=== PATIENT | female | born 1950 | race Caucasian/White ===

== ENCOUNTER → 2018-03-23 | Outpatient (CLI) | payer OTHER ==
--- NOTE | 2018-03-23 10:10 | CARD ---
MR#: [id number] Date of Study: 03/23/2018 Ordering Physician: PRISCILA MOORE, Referring Physician: PRISCILA MOORE, Tech: Laura Cody MILTON APPROVED REPORT EXAM: Two-dimensional and M-mode echocardiogram with Doppler and color Doppler. Other Information Quality : AverageHR: 73bpm Rhythm : NSR INDICATION Murmur 2D DIMENSIONS RVDd2.5 (2.9-3.5cm)Left Atrium(2D)3.0 (1.6-4.0cm) IVSd1.1 (0.7-1.1cm)Aortic Root(2D)2.9 (2.0-3.7cm) LVDd4.7 (3.9-5.9cm)LVOT Diameter2.0 (1.8-2.4cm) PWd1.0 (0.7-1.1cm)LVDs3.2 (2.5-4.0cm) FS (%) 31.4 %SV59.4 ml LVEF(%)59.3 (>50%) M-Mode DIMENSIONS Left Atrium(MM)3.55 (2.5-4.0cm)Aortic Root3.23 (2.2-3.7cm) Aortic Valve AoV Peak Domenic.110.5cm/sAoV VTI26.0cm AO Peak GR.4.9mmHgLVOT Peak Domenic.72.9cm/s AO Mean GR.3mmHgAVA (VMAX)2.11cm2 DALLIN (VTI)2.20cm2 Mitral Valve MV E Jjjkemtu13.3cm/sMV DECEL NEZB663hf MV A Hmqxgzqf08.7cm/sE/A Ratio0.9 MV A Egcitsou122jb Pulmonary Valve PV Peak Ilnjbttv42.6cm/s Tricuspid Valve TR P. Qfbqnilt922xm/sRAP RRGOZORU5fqNr TR Peak Gr.94xkLjXPBL31gaCb Pulmonary Vein S1 Lpmtbawg37.9cm/sD2 Xokxdydi88.5cm/s PVa dvscipqg554vmzq LEFT VENTRICLE The left ventricle is normal size. There is borderline concentric left ventricular hypertrophy. The l eft ventricular systolic function is normal and the ejection fraction is within normal range. The Eje ction Fraction is 55-60%. There is normal LV segmental wall motion. Transmitral Doppler flow pattern is Grade II-pseudonormal filling dynamics. RIGHT VENTRICLE The right ventricle is normal size. There is normal right ventricular wall thickness. The right ventr icular systolic function is normal. ATRIA The left atrium size is normal. The right atrium size is normal. The interatrial septum is intact wit h no evidence for an atrial septal defect or patent foramen ovale as noted on 2-D or Doppler imaging. AORTIC VALVE The aortic valve is trileaflet. The aortic valve is normal in structure and function. Doppler and Col or Flow revealed no significant aortic regurgitation. There is no significant aortic valvular stenosi s. MITRAL VALVE Mitral annular calcification is mild. There is no evidence of mitral valve prolapse. There is no mitr al valve stenosis. Doppler and Color-flow revealed trace mitral regurgitation. TRICUSPID VALVE The tricuspid valve is normal in structure and function. Doppler and Color Flow revealed trace tricus pid regurgitation. The PA pressure was estimated at 33 mmHg. There is no tricuspid valve prolapse or vegetation. There is no tricuspid valve stenosis. PULMONIC VALVE The pulmonary valve is normal in structure and function. Doppler and Color Flow revealed trace pulmon ic valvular regurgitation. There is no pulmonic valvular stenosis. GREAT VESSELS The aortic root is normal in size. The ascending aorta is normal in size. The IVC is normal in size a nd collapses >50% with inspiration. PERICARDIAL EFFUSION There is no evidence of significant pericardial effusion. Critical Notification Critical Value: No <Conclusion> The left ventricle is normal size. The left ventricular systolic function is normal and the ejection fraction is within normal range. The Ejection Fraction is 55-60%. There is borderline concentric left ventricular hypertrophy. There is no significant aortic valvular stenosis. Doppler and Color Flow revealed no significant aortic regurgitation. Doppler and Color-flow revealed trace mitral regurgitation. Doppler and Color Flow revealed trace tricuspid regurgitation. The PA pressure was estimated at 33 mmHg. Signed by : Priscila Moore MD Electronically Approved : 03/23/2018 10:09:34
--- NOTE | 2018-03-23 12:07 | RAD ---
MR#: [id number] Date of Study: 03/23/2018 Ordering Physician: PRISCILA DE SANTIAGO, Referring Physician: ERIK MOREJON Tech: RT Nupur (R) (N) APPROVED REPORT Test Type: Exercise Stress Nurse/Tech: Ita Davis R.N. Test Indications: dyspnea on exertion, fatigue Cardiac History: Family history, Hypertension Medications: See Electronic Medical Record Medical History: See Electronic Medical Record Resting ECG: NSR Resting Heart Rate: 83 bpm Resting Blood Pressure: 171/75mmHg Pretest Chest Pain: No chest pain Nurse/Tech Notes S1S2, lungs sound clear Consent: The procedure was explained to the patient in lay terms. Informed consent was witnessed. Guzman eout was entered into [employer]. History and Stress Test performed by Ita Davis R.N. Stress Symptoms Dyspnea POST EXERCISE Reason for Termination: Reached target heart rate Target HR: 128 Max HR: 149 bpm 99% of Maximum Predicted HR: 151 bpm Exercise duration: 6 min min:sec, 2 Stage Max Blood Pressure: 197/76mmHg Blood Pressure response to exercise: Normal blood pressure response during stress. Chest Pain: No. Arrhythmia: Yes. rare PVC after walking INTERPRETATION Stress EKG Conclusion: The resting EKG shows a sinus rhythm with mild nonspecific ST segment changes. The stress EKG has slight flat ST depression in the lateral leads that is not diagnostic of ischemia. No EKG evidence of stress-induced ischemia. Imaging Protocol IMAGE PROTOCOL: Rest Tc-99m/stress Tc-99m 1 day Rest: Stress: Viability: Radiopharm.Tc99m BmoilubmqYt84u Sestamibi Dose10.6mCi 33.9mCi Duration 13min. 13min. Img Date 03/23/2018 03/23/2018 Inj-Img Zpnc76ahm. 60min. Rest Admin Site:IV - Left WristAdministrator:RT Nupur (Chris)(N) Stress Admin Site: IV - Left WristAdministrator: RT Nupur (Chris)(N) STRESS DATA End Diast. Vol.72.0mlLVEDV index BSA38.0ml End Syst. Vol.18.0mlLVESV index BSA9.0ml Myocardial Hnbp798.0gEject. Jlwuyawg29.0% Stress Scores Regional WT1.00Summed WT3.00 Regional WM0.00Summed WM0.00 LV Perfusion The stress scans show no significant defects. The rest scans show no significant defects. Nuclear imaging shows no reversible ischemia or infarct. Wall Motion Left ventricular systolic function is normal with an ejection fraction of greater than 70%. LV Perf. Quant 17 Seg. SSS0.00 17 Seg. SRS4.00 17 Seg. SDS0.00 Stress Defect Extent (% LAD)0.00Rest Defect Extent (% LAD)16.90Rev. Defect Extent (% LAD)0.00 Stress Defect Extent (% LCX) 0.00Rest Defect Extent (% LCX)0.00Rev. Defect Extent (% LCX)0.00 Stress Defect Extent (% RCA)0.00Rest Defect Extent (% RCA)0.00Rev. Defect Extent (% RCA)0.00 Stress Defect Extent (% ROCAEL)0.00Rest Defect Extent (% ROCAEL)7.80Rev. Defect Extent (% ROCAEL)0.00 Conclusion 1. Good exercise tolerance. 2. No reported chest pain with exertion. 3. No EKG evidence of stressed induced ischemia. 4. Nuclear imaging shows no reversible ischemia or infarct. 5. Normal left ventricular systolic function with an ejection fraction of greater than 70%. 6. Low risk treadmill nuclear stress test. Signed by : Priscila De Santiago MD Electronically Approved : 03/23/2018 12:06:44
== END | disposition home or self-care (01) ==
LOC: ECHO 07:41
PROVIDERS: ATTEND Internal Medicine Cardiovascular Disease
DX: R01.1 Cardiac murmur, unspecified (principal); R06.09 Other forms of dyspnea; Z82.49 Family history of ischemic heart disease and other diseases of the circulatory system
CPT/HCPCS: 78452; 93017; 93306; 96374; 96376; A9500

== ENCOUNTER → 2019-03-06 | Outpatient (CLI) | payer OTHER ==
--- NOTE | 2019-03-06 16:55 | KCIC ---
MRI Lumbar Spine without contrast History: Previous laminectomy, lumbar radiculopathy, low back pain Technique: Multiplanar, multi sequential noncontrast MR imaging was performed of the lumbar spine. Comparison: None Findings: Lumbar vertebral body stature is maintained. There is grade 1 anterior spondylolisthesis at L4-5 and the order of 4 mm. There is advanced L4-5 degenerative disc disease, ebor-ei-rficcbbu L3-4 degenerative disc disease. There is mild disc desiccation at other levels of the lumbar spine. There is mild edema of the posterior superior corner of L4 likely reactive/degenerative in etiology. There are annular tears such as posteriorly and anteriorly at L3-4, posteriorly at L4-5, and anteriorly at L2-3. Conus terminates near L1. 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 L1-L2: Spinal canal and neural foramina are adequate. L2-L3: There is small hemangioma of the left L2 vertebral body. There is negligible disc osteophyte complex. There is minimal narrowing of the far lateral recesses greater on the left. Neural foramina are adequate. There is mild facet degenerative change. L3-L4: There is minimal bulge. There is mild buckling of the ligamentum flavum and facet degenerative change. There is minimal narrowing of the far lateral recesses bilaterally. Neural foramina are adequate. L4-L5: There is moderate facet degenerative change. There is mild buckling of the ligamentum flavum on the left. There is partial uncovering of the posterior aspect of the disc due to spondylolisthesis with superimposed disc osteophyte complex and bulge. There is moderate narrowing of the far left lateral recess primarily from posteriorly, minimal narrowing of the far right lateral recess, minimal narrowing of the central canal. There is moderate narrowing of the left neural foramen, disc osteophyte complex/bulge near the undersurface exiting left L4 nerve root without displacement. There is also moderate narrowing of the right neural foramen greater distally. L5-S1: There is negligible bulge. Spinal canal is adequate. There is mild facet hypertrophic change and buckling of the ligament flavum. There is mild narrowing of the left neural foramen, right neural foramen adequate. Impression: 1. There is moderate narrowing of the far left lateral recess at L4-5, minimal narrowing of the far lateral recesses at L4-5 and bilaterally at L3-4 and L2-3 as described. 2. There is more advanced degenerative disc disease at L4-5, to lesser degree L3-4. 3. There is grade 1 anterior spondylolisthesis at L4-5 at which there is facet degenerative change. 4. There is moderate narrowing of the neural foramina bilaterally at L4-5. Electronically signed by: Maksim Beckett MD (03/06/2019 4:52 PM) [facility]
== END | disposition home or self-care (01) ==
LOC: KCIC MRI 15:02
PROVIDERS: ATTEND Family Medicine
DX: M43.16 Spondylolisthesis, lumbar region (principal); M51.36 Other intervertebral disc degeneration, lumbar region; M48.07 Spinal stenosis, lumbosacral region; M25.78 Osteophyte, vertebrae; M47.816 Spondylosis without myelopathy or radiculopathy, lumbar region; Z90.89 Acquired absence of other organs
CPT/HCPCS: 72148

== ENCOUNTER → 2019-03-28 | Outpatient (CLI) | payer MEDICARE, OTHER ==
--- NOTE | 2019-03-28 17:06 | KCIC ---
EXAM: Left hip, 2 views; lumbar spine, flexion and extension. HISTORY: Pain. COMPARISON: None. FINDINGS: Left hip: Frontal and frog-leg views of the left hip are obtained. There is no fracture, dislocation or subacute fixation. There is mild marginal femoral head spurring. Lumbar spine: Lateral neutral, flexion and extension views of the lumbar spine are obtained. There is grade 1 anterolisthesis of L4 on L5 which minimally increases in flexion compared to extension. This decreases with supine positioning. No additional listhesis is seen. There is endplate remodeling with disc space narrowing and only at this level. There is facet arthropathy at the mid and lower lumbar levels. IMPRESSION: 1. Mild left hip osteoarthritis. 2. Grade 1 anterolisthesis of L4 on L5 which slightly changes between flexion and extension and with supine positioning. There is degenerative change primarily at this level. Electronically signed by: Radha Yates MD (03/28/2019 5:03 PM) [id number]
== END | disposition home or self-care (01) ==
LOC: KCIC 15:55
PROVIDERS: ATTEND Neurological Surgery
DX: M43.16 Spondylolisthesis, lumbar region (principal); M46.06 Spinal enthesopathy, lumbar region; M48.061 Spinal stenosis, lumbar region without neurogenic claudication; M16.12 Unilateral primary osteoarthritis, left hip
CPT/HCPCS: 72100; 73502

== ENCOUNTER → 2019-04-10 | Outpatient (CLI) | payer MEDICARE ==
[~2019-04-10] MED LIST: IOHEXOL 180 MG/ML 10 ML VIAL. IT ONE; LIDOCAINE 1% Multi-Dose 20 ML VIAL. ID ONE
--- NOTE | 2019-04-10 14:35 | KCIC ---
Lumbar Myelogram History: Low back pain into the left leg for 3 months getting worse Technique: Patient was informed of the risks of the procedure to include pain, infection, bleeding, seizures, nerve root injury, and allergic reaction to the contrast. All questions were answered. Patient signed a written consent form for a lumbar myelogram. The patient was placed in a prone oblique position on the fluoroscopy table. External site of the lower back was prepped and draped in the usual sterile fashion. Betadine was utilized for cleansing solution. 1% lidocaine was utilized for local anesthesia at the anticipated site of puncture right L2-3 interlaminar space. A 19-gauge guiding needle was advanced into the soft tissues. Through the guiding needle, a 25 gauge Chito needle was advanced until there was return of cerebral spinal fluid. Approximately 15 cc of Omnipaque 180 were then injected during fluoroscopic visualization. The needles were removed. Fluoroscopic spot images including standing images were acquired of the lumbar spine. The patient was then transferred to the CT department for CT examination of the lumbar spine. There were no immediate complications. Fluoroscopy time: 46 seconds, 14 images Findings: There is no evidence of myelographic block. There is grade 1 anterior spondylolisthesis at L4-5 slightly accentuated with flexion. There is advanced L4-5 degenerative disc disease. There are anterior extradural defects at L4-5 and to a lesser degree at L3-4 and L2-3. There is very minimal posterior subluxation L2 relative to L3 fairly similar with flexion and extension. There is ddvp-vb-bsrozufw L3-4 degenerative disc disease. There is mild lumbar dextroscoliosis. There is mild left lateral subluxation L4 relative to L5 and mild right lateral subluxation of L3 relative to L4. There is atherosclerotic calcification of the abdominal aorta. Impression: 1. There is abnormal alignment as stated most notable grade 1 anterior spondylolisthesis at L4-5 slightly accentuated with flexion. Minimal posterior subluxation L2 relative to L3 is similar with flexion and extension. There is mild abnormal lateral alignment. 2. There is mild lumbar dextroscoliosis. 3. There is advanced L4-5 degenerative disc disease, to a lesser degree at L3-4. Electronically signed by: Maksim Beckett MD (04/10/2019 2:32 PM) [facility]
--- NOTE | 2019-04-10 15:30 | KCIC ---
CT lumbar spine exam History: Low back pain into the left leg for 3 months getting worse Technique: CT imaging was performed of the lumbar spine after injection for lumbar myelogram. Multiplanar reconstruction images are submitted. Exposure: One or more of the following individualized dose reduction techniques were utilized for this examination: 1. Automated exposure control 2. Adjustment of the mA and/or kV according to patient size 3. Use of iterative reconstruction technique. Comparison: March 06, 2019 Findings: Lumbar vertebral body stature is maintained. There is again grade 1 anterior spondylolisthesis at L4-5 about 6 mm. There is very minimal posterior subluxation L2 relative to L3. There is mild left lateral subluxation L4 relative to L5 and very mild right lateral subluxation L3 relative to L4. There is mild lumbar dextroscoliosis centered near L3. There is advanced L4-5 degenerative disc disease with associated vacuum phenomenon, ueii-ii-jfbxadfg degenerative disc disease at L3-4. Conus terminates at the mid aspect of L1. T12-L1: Neural foramina and spinal canal are adequate. L1-L2: There is mild facet degenerative change. Spinal canal and neural foramina are adequate. L2-L3: There is minimal buckling of the ligamentum flavum and kjkf-ip-nqdypzco facet degenerative change. Neural foramina are adequate. There is minimal bulge indenting the ventral thecal sac in the far lateral recesses bilaterally without significant spinal stenosis. L3-L4: There is minimal bulge. There is mild buckling of the ligamentum flavum and moderate facet hypertrophic change. There is very mild narrowing of the far right lateral recess from posteriorly. Neural foramina are adequate. L4-L5: There is moderate to severe facet degenerative change. There is mild buckling of the ligamentum flavum flavum on the left. There has been right laminotomy. There is moderate narrowing of the far left lateral recess from posteriorly below the intervertebral disc space level due to facet and ligamentum flavum, right lateral recess not significantly narrowed. There is partial uncovering of the posterior aspect of the disc due to spondylolisthesis, superimposed disc osteophyte complex and bulge. There is moderate narrowing of the right neural foramen with contact of the undersurface of exiting right L4 nerve by partially calcified bulge. There is gopo-ei-ealnjkpy narrowing of the inferior left neural foramen with bulge in the undersurface exiting left L4 nerve root without displacement. L5-S1: There is fairly severe facet degenerative change and mild buckling of the ligamentum flavum. Spinal canal is adequate. Right neural foramen is overall adequate. There is suspected small extrusion extending above the intervertebral disc space in the inferior left neural foramen such as seen sagittal image 12 series 603 about 3 mm CC by 3 to 4 mm AP with contact of the undersurface of the exiting left L5 nerve root in the neural foramen, moderate narrowing of the inferior left neural foramen. Impression: 1. There is moderate left lateral recess stenosis below the L4-5 intervertebral disc space by facet degenerative change and ligamentum flavum. There is suspected small extrusion in the inferior left L5-S1 neural foramen with contact of the exiting left L5 nerve root, overall moderate narrowing. There is also moderate right and foua-eh-fakisxyz left L4-5 neural foramina compromise as described with contact of the exiting L4 nerve roots. There is multilevel lumbar facet degenerative change, grade 1 anterior spondylolisthesis at L4-5 and minimal posterior subluxation L2 relative to L3. There is advanced L4-5 degenerative disc disease, to a lesser degree at L3-4. Electronically signed by: Maksim Beckett MD (04/10/2019 3:26 PM) [id number]
== END | disposition home or self-care (01) ==
LOC: KCIC 12:40
PROVIDERS: ATTEND Neurological Surgery
DX: M51.16 Intervertebral disc disorders with radiculopathy, lumbar region (principal); M47.26 Other spondylosis with radiculopathy, lumbar region; M43.16 Spondylolisthesis, lumbar region; M47.818 Spondylosis without myelopathy or radiculopathy, sacral and sacrococcygeal region; M48.07 Spinal stenosis, lumbosacral region; I70.0 Atherosclerosis of aorta; I10 Essential (primary) hypertension; Z88.5 Allergy status to narcotic agent
CPT/HCPCS: 72132; 72265; Q9965

== ENCOUNTER → 2019-05-22 | Outpatient (CLI) | payer MEDICARE ==
[~2019-05-22] MED LIST changes: +CALC-71 PO; +CHOL100099 PO; -IOHEXOL 180 MG/ML 10 ML VIAL. IT ONE; -LIDOCAINE 1% Multi-Dose 20 ML VIAL. ID ONE; +LISI10TA2 PO; +MAGN400T5 PO; +METO-239 PO; +ORPH100T PO; +OXYC5CAP PO; +POTA8CAP19 PO; +TRAM50TA PO; +ZINC50CA PO
--- NOTE | 2019-05-22 16:12 | EKG ---
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
[2019-05-22 16:28] LABS: BASO % 1 % (0-3); EOS # 0.2 x10^3/uL (0.0-0.7); EOS % 2 % (0-3); LYMPH # 1.7 x10^3/uL (1.0-4.8); LYMPH % 26 % (24-48); MEAN CORPUSCULAR HEMOGLOBIN 28 pg (25-35); MEAN CORPUSCULAR HGB CONC 33 g/dL (31-37); MEAN CORPUSCULAR VOLUME 83 fL (79-100); MONO # 0.7 x10^3/uL (0.0-1.1); MONO % 11 % (0-9); NEUT % 60 % (31-73); PLATELET COUNT 270 x10^3/uL (140-400); RED BLOOD COUNT 5.09 x10^6/uL (3.50-5.40); RED CELL DISTRIBUTION WIDTH 13.9 % (11.5-14.5); WHITE BLOOD COUNT 6.6 x10^3/uL (4.0-11.0)
[2019-05-22 16:44] LABS: PROTHROMBIN TIME PATIENT 13.7 SEC (11.7-14.0)
[2019-05-22 16:55] LABS: ALBUMIN 3.5 g/dL (3.4-5.0); ALBUMIN/GLOBULIN RATIO 0.8 (1.0-1.7); CALCIUM 9.9 mg/dL (8.5-10.1); CREATININE 0.9 mg/dL (0.6-1.0); GFR 61.9; TOTAL BILIRUBIN 0.3 mg/dL (0.2-1.0); TOTAL PROTEIN 7.7 g/dL (6.4-8.2)
== END | disposition home or self-care (01) ==
LOC: SURGPAT 13:14
PROVIDERS: ATTEND Neurological Surgery
DX: Z01.818 Encounter for other preprocedural examination (principal); I10 Essential (primary) hypertension; R94.31 Abnormal electrocardiogram [ECG] [EKG]
CPT/HCPCS: 36415; 80053; 82306; 85025; 85610; 85730; 87641; 93005

== ENCOUNTER 2019-05-28 09:19 | Emergency (ER) | payer MEDICARE ==
[~2019-05-28] VITALS: Ht 170.2 cm; Wt 80.0 kg
[~2019-05-28 09:19] MED LIST changes: -ORPH100T PO; -OXYC5CAP PO
[2019-05-28 09:25] VITALS: BP 172/84
[2019-05-28] MEDS ORDERED: IV NORMAL SALINE 1000ML BAG 1,000 ML IV ONE (09:45)
[2019-05-28] MEDS ORDERED: KETOROLAC 15 MG/ML VIAL. IVP ONE (09:45)
[2019-05-28] MEDS ORDERED: ORPHENADRINE CITRATE 60 MG/2 ML VIAL. IV ONE (09:45)
--- NOTE | 2019-05-28 09:46 | PHYS DOC ---
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 Reports some upper thoracic discomfort. Denies chest pain or shortness of air. D enies headache. Denies room spinning sensation. Patient reports has been eating and drinking normally. Denies dysuria. Patient reports she was scheduled for a back fusion which was delayed because the anesthesiologist was concerned about her EKG. Patient reports she has an appointment with cardiology on . Patient reports she was recently started on Tramadol for her chronic back pain. Reports concern that the medication might be causing some of her symptoms. Review of Systems Review of Systems Constitutional: Denies fever or chills; reports generalized malaise Eyes: Denies redness or eye pain HENT: Denies nasal congestion or sore throat Respiratory: Denies cough or shortness of breath Cardiovascular: Denies chest pain or palpitations GI: Denies abdominal pain, nausea, or vomiting : Denies dysuria or hematuria Musculoskeletal: Reports chronic back pain; denies extremity pain Integument: Denies rash or skin lesions Neurologic: Denies headache, focal weakness or sensory changes; reports dizziness Complete systems were reviewed and found to be within normal limits, except as documented in this note. Current Medications Current Medications Current Medications Medications (Trade) Dose Ordered Sig/Avery Start Time Stop Time Status Last Admin Dose Admin Ketorolac Tromethamine (Toradol 15mg Vial) 10 mg 1X ONCE 05/28/19 09:45 05/28/19 09:46 DC 05/28/19 10:27 10 MG Magnesium Chloride (Mag Delay) 64 mg 1X ONCE 05/28/19 11:15 05/28/19 11:16 UNV Orphenadrine Citrate (Norflex) 60 mg 1X ONCE 05/28/19 09:45 05/28/19 09:46 DC 05/28/19 10:27 60 MG Sodium Chloride 1,000 ml @ 1,000 mls/hr 1X ONCE 05/28/19 09:45 05/28/19 10:44 DC 05/28/19 10:27 1,000 MLS/HR Allergies Allergies Allergies Coded Allergies Type Severity Reaction Last Updated Verified codeine Allergy Mild VOMIT, SWEAT 03/23/18 No Physical Exam Physical Exam Constitutional: Well developed, well nourished, no acute distress, non-toxic appearance HENT: Normocephalic, atraumatic, oropharynx moist Eyes: PERRL, EOMI, conjunctiva normal, no discharge, no nystagmus Neck: Normal range of motion, no midline tenderness, supple Cardiovascular: Heart rate normal, regular rhythm Lungs & Thorax: Bilateral breath sounds clear to auscultation, no wheezing Abdomen: Soft, no tenderness Skin: Warm, dry, no erythema, no rash Back: No midline tenderness, bilateral paraspinal lumar pain, no CVA tenderness Extremities: No tenderness, ROM intact, no edema Neurologic: Alert and oriented X 3, normal motor function, normal sensory function, no focal deficits noted Psychologic: Affect normal, judgment normal Current Patient Data Vital Signs Vital Signs Date Time Temp Pulse Resp B/P (MAP) Pulse Ox O2 Delivery O2 Flow Rate FiO2 05/28/19 09:25 98.6 110 20 172/84 (113) 96 Room Air 98.6 Lab Values Laboratory Tests Test 05/28/19 09:45 05/28/19 10:15 White Blood Count 6.1 x10^3/uL (4.0-11.0) Red Blood Count 4.95 x10^6/uL (3.50-5.40) Hemoglobin 13.6 g/dL (12.0-15.5) Hematocrit 41.1 % (36.0-47.0) Mean Corpuscular Volume 83 fL (79-100) Mean Corpuscular Hemoglobin 28 pg (25-35) Mean Corpuscular Hemoglobin Concent 33 g/dL (31-37) Red Cell Distribution Width 14.0 % (11.5-14.5) Platelet Count 239 x10^3/uL (140-400) Neutrophils (%) (Auto) 72 % (31-73) Lymphocytes (%) (Auto) 20 % (24-48) L Monocytes (%) (Auto) 6 % (0-9) Eosinophils (%) (Auto) 2 % (0-3) Basophils (%) (Auto) 1 % (0-3) Neutrophils # (Auto) 4.4 x10^3/uL (1.8-7.7) Lymphocytes # (Auto) 1.2 x10^3/uL (1.0-4.8) Monocytes # (Auto) 0.4 x10^3/uL (0.0-1.1) Eosinophils # (Auto) 0.1 x10^3/uL (0.0-0.7) Basophils # (Auto) 0.0 x10^3/uL (0.0-0.2) Prothrombin Time 13.9 SEC (11.7-14.0) Prothrombin Time INR 1.1 (0.8-1.1) Activated Partial Thromboplast Time 31 SEC (24-38) Sodium Level 142 mmol/L (136-145) Potassium Level 3.6 mmol/L (3.5-5.1) Chloride Level 102 mmol/L (98-107) Carbon Dioxide Level 25 mmol/L (21-32) Anion Gap 15 (6-14) H Blood Urea Nitrogen 13 mg/dL (7-20) Creatinine 1.1 mg/dL (0.6-1.0) H Estimated GFR (Cockcroft-Gault) 49.1 BUN/Creatinine Ratio 12 (6-20) Glucose Level 216 mg/dL (70-99) H Calcium Level 9.7 mg/dL (8.5-10.1) Magnesium Level 1.5 mg/dL (1.8-2.4) L Total Bilirubin 0.5 mg/dL (0.2-1.0) Aspartate Amino Transferase (AST) 29 U/L (15-37) Alanine Aminotransferase (ALT) 70 U/L (14-59) H Alkaline Phosphatase 77 U/L (46-116) Creatine Kinase 41 U/L (26-192) Creatine Kinase MB (Mass) ng/mL (0.0-3.6) Creatine Kinase MB Relative Index % (0-4) Troponin I Quantitative < 0.017 ng/mL (0.000-0.055) Total Protein 7.4 g/dL (6.4-8.2) Albumin 3.4 g/dL (3.4-5.0) Albumin/Globulin Ratio 0.9 (1.0-1.7) L Urine Collection Type Unknown Urine Color Yellow Urine Clarity Clear Urine pH 5.5 Urine Specific [place] 1.010 Urine Protein Negative mg/dL (NEG-TRACE) Urine Glucose (UA) Negative mg/dL (NEG) Urine Ketones (Stick) Negative mg/dL (NEG) Urine Blood Negative (NEG) Urine Nitrite Negative (NEG) Urine Bilirubin Negative (NEG) Urine Urobilinogen Dipstick 0.2 mg/dL (0.2 mg/dL) Urine Leukocyte Esterase Negative (NEG) Urine RBC 0 /HPF (0-2) Urine WBC 0 /HPF (0-4) Urine Squamous Epithelial Cells Few /LPF Urine Bacteria 0 /HPF (0-FEW) Laboratory Tests 05/28/19 09:45 Laboratory Tests 05/28/19 09:45 EKG EKG @1010 NSR at 90bpm, NO ST elevation, nonspecific t wave inversion I, aVL, and V5-V6 Radiology/Procedures Radiology/Procedures PROCEDURE: CT HEAD WO CONTRAST EXAM: Head CT without contrast. HISTORY: Dizziness. TECHNIQUE: Computed tomographic images of the head were obtained without contrast. *One or more of the following individualized dose reduction techniques were utilized for this examination: 1. Automated exposure control. 2. Adjustment of the mA and/or kV according to patient size. 3. Use of iterative reconstruction technique. COMPARISON: None. FINDINGS: There is no acute or subacute extra-axial or intraparenchymal hemorrhage. There is no mass effect or midline shift. There is no hydrocephalus. There are areas of decreased attenuation within the cerebral white matter, nonspecific and likely related to chronic small vessel disease. The visualized portions of the orbits, paranasal sinuses and mastoid air cells are unremarkable. No suspicious calvarial lesion is seen. IMPRESSION: No acute intracranial findings. Electronically signed by: Radha Yates MD (05/28/2019 10:03 AM) [facility] PROCEDURE: CHEST PA & LATERAL EXAM: Chest, 2 views. HISTORY: Dizziness. COMPARISON: 08/08/2012. FINDINGS: 2 views of the chest are obtained. There is no infiltrate, pleural effusion or pneumothorax. The heart is normal in size. There is suspected lingular atelectasis or scarring. IMPRESSION: No acute pulmonary finding. Electronically signed by: Radha Yates MD (05/28/2019 10:04 AM) [place] [id number] Course & Med Decision Making Course & Med Decision Making Pertinent Labs and Imaging studies reviewed. (See chart for details) Patient presents with dizziness this morning. Patient reports some upper thoracic discomfort. History of chronic back pain for which patient was scheduled for procedure on Wednesday but was rescheduled secondary to "EKG abnormalities ". Patient neurologically intact. NIH SS 0. EKG stable. Labs obtained and posted to chart. Hypomagnesemia addressed. CT head without acute process. Chest x-ray stable. IV fluid hydration given. Orthostatic vital signs stable. Patient reported chronic back pain. Patient reports concern that new pain medication- Tramadol might be causing some of her symptoms. Norflex and ketorlac given in department with some improvement of pain. Patient requests some continued treatment until she can follow with PCP or Neurosurgery. Hx of Oscar's disease. Will given Rx for Oxycodone 5mg x 8 tabs and Norflex prescription. Patient stable for discharge with outpatient follow-up with PCP. Discussed findings and plan with patient and family, who acknowledge understanding and agreement. Dragon Disclaimer Dragon Disclaimer This electronic medical record was generated, in whole or in part, using a voice recognition dictation system. Departure Departure Impression: Primary Impression: Dizziness Additional Impressions: Hypomagnesemia Chronic back pain Disposition: HOME, SELF-CARE Condition: STABLE Referrals: SANTOSH MCCLENDON MD (PCP) ZE ROWAN MD, PRASHANTH S MD Patient Instructions: Chronic Back Pain, Dizziness, [id number], Hypomagnesemia Scripts Oxycodone Hcl (OXYCODONE HCL) 5 Mg Capsule 0.5-1 TAB PO PRN Q6HRS PRN for PAIN, #8 TAB 0 Refills Prov: RUBENS ROLLINS DO 05/28/19 Orphenadrine Citrate (ORPHENADRINE CITRATE) 100 Mg Tablet.er 100 MG PO BID PRN for MUSCLE PAIN, #14 TAB Prov: RUBENS ROLLINS DO 05/28/19 NIHSS Stroke Scale NIH Stroke Scale: NIH Stroke Scale Response (Comments) Value Level of Consciousness: 0 Alert/Responsive 0 LOC Questions: 0 Answers both correctly 0 LOC Commands: 0 Performs both tasks 0 Best Gaze: 0 Normal 0 Visual: 0 No visual loss 0 Facial Palsy: 0 Normal, symmetrical 0 Motor - Left Arm 0 No drift 0 Motor - Right Arm 0 No drift 0 Motor - Left Leg 0 No drift 0 Motor: Right Leg 0 No drift 0 Limb Ataxia: 0 Absent 0 Sensory: 0 No loss 0 Best Language: 0 Normal 0 Dysathria: 0 Normal 0 Extinction and Inattention: 0 Normal 0 Total 0 Problem Qualifiers Additional Impressions: Chronic back pain Back pain location: low back pain Back pain laterality: unspecified Sciatica presence: unspecified whether sciatica present Qualified Codes: M 54.5 - Low back pain; G89.29 - Other chronic pain RUBENS ROLLINS DO May 28, 2019 09:46
--- NOTE | 2019-05-28 10:05 | RAD ---
EXAM: Head CT without contrast. HISTORY: Dizziness. TECHNIQUE: Computed tomographic images of the head were obtained without contrast. *One or more of the following individualized dose reduction techniques were utilized for this examination: 1. Automated exposure control. 2. Adjustment of the mA and/or kV according to patient size. 3. Use of iterative reconstruction technique. COMPARISON: None. FINDINGS: There is no acute or subacute extra-axial or intraparenchymal hemorrhage. There is no mass effect or midline shift. There is no hydrocephalus. There are areas of decreased attenuation within the cerebral white matter, nonspecific and likely related to chronic small vessel disease. The visualized portions of the orbits, paranasal sinuses and mastoid air cells are unremarkable. No suspicious calvarial lesion is seen. IMPRESSION: No acute intracranial findings. Electronically signed by: Radha Yates MD (05/28/2019 10:03 AM) [facility]
--- NOTE | 2019-05-28 10:07 | RAD ---
EXAM: Chest, 2 views. HISTORY: Dizziness. COMPARISON: 08/08/2012. FINDINGS: 2 views of the chest are obtained. There is no infiltrate, pleural effusion or pneumothorax. The heart is normal in size. There is suspected lingular atelectasis or scarring. IMPRESSION: No acute pulmonary finding. Electronically signed by: Radha Yates MD (05/28/2019 10:04 AM) [facility]
[2019-05-28 10:11] LABS: BASO % 1 % (0-3); EOS # 0.1 x10^3/uL (0.0-0.7); EOS % 2 % (0-3); HEMATOCRIT 41.1 % (36.0-47.0); HEMOGLOBIN 13.6 g/dL (12.0-15.5); LYMPH # 1.2 x10^3/uL (1.0-4.8); LYMPH % 20 % (24-48); MEAN CORPUSCULAR HEMOGLOBIN 28 pg (25-35); MEAN CORPUSCULAR HGB CONC 33 g/dL (31-37); MEAN CORPUSCULAR VOLUME 83 fL (79-100); MONO # 0.4 x10^3/uL (0.0-1.1); MONO % 6 % (0-9); NEUT # 4.4 x10^3/uL (1.8-7.7); NEUT % 72 % (31-73); PLATELET COUNT 239 x10^3/uL (140-400); RED BLOOD COUNT 4.95 x10^6/uL (3.50-5.40); WHITE BLOOD COUNT 6.1 x10^3/uL (4.0-11.0)
[2019-05-28 10:19] LABS: CALCIUM 9.7 mg/dL (8.5-10.1); CREATININE 1.1 mg/dL (0.6-1.0); GFR 49.1; POTASSIUM 3.6 mmol/L (3.5-5.1)
[2019-05-28 10:23] LABS: BILIRUBIN,URINE NEGATIVE (NEG); CLARITY,URINE CLEAR; COLOR,URINE YELLOW; NITRITE,URINE NEGATIVE (NEG); PH,URINE 5.5; PROTEIN,URINE NEGATIVE (NEG-TRACE); UROBILINOGEN,URINE 0.2 mg/dL (0.2 mg/dL)
[2019-05-28 10:24] LABS: ALBUMIN 3.4 g/dL (3.4-5.0); ALBUMIN/GLOBULIN RATIO 0.9 (1.0-1.7); MAGNESIUM 1.5 mg/dL (1.8-2.4); TOTAL BILIRUBIN 0.5 mg/dL (0.2-1.0); TOTAL PROTEIN 7.4 g/dL (6.4-8.2)
[2019-05-28 10:31] LABS: BACTERIA,URINE 0 /HPF (0-FEW); RBC,URINE 0 /HPF (0-2); SQUAMOUS EPITHELIAL CELL,UR FEW /LPF; WBC,URINE 0 /HPF (0-4)
[2019-05-28 10:34] LABS: CREATINE KINASE 41 U/L (26-192)
[2019-05-28 10:59] LABS: PROTHROMBIN TIME PATIENT 13.9 SEC (11.7-14.0)
[2019-05-28] MEDS ORDERED: MAGNESIUM CHLORIDE ER 64 MG TABLET.ER PO ONE (11:15)
[2019-05-28] MEDS ORDERED: OXYC5CAP PO (11:30)
[2019-05-28] MEDS ORDERED: ORPH100T PO (11:30)
--- NOTE | 2019-05-28 14:57 | EKG ---
[facility] [address] [place] [address] Test Date: 2019-05-28 Test Time: 10:10:58 Pat Name: NOEMY VALERO Department: Room: Gender: F Manager Travel: : 1950 Requested By: RUBENS ROLLINS Order Number: [id number] Reading MD: Measurements Intervals [place] Rate: 90 P: 12 MS: 204 QRS: -26 QRSD: 84 T: 124 QT: 332 QTc: 410 Interpretive Statements SINUS RHYTHM LEFTWARD AXIS LVH WITH REPOLARIZATION ABNORMALITY ABNORMAL ECG RI6.01 No previous ECG available for comparison
== END 2019-05-28 11:56 | disposition home or self-care (01) ==
LOC: ER 09:19
DX: R42 Dizziness and giddiness (principal); G89.29 Other chronic pain; M54.5 Low back pain; E83.42 Hypomagnesemia; I10 Essential (primary) hypertension; Z90.710 Acquired absence of both cervix and uterus; Z98.51 Tubal ligation status; E83.01 Wilson's disease; Z88.5 Allergy status to narcotic agent
CPT/HCPCS: 36415; 70450; 71046; 80053; 81001; 82553; 83735; 84484; 85025; 85610; 85730; 93005; 96361; 96374; 96375; 99285; J1885; J2360; J7030

== ENCOUNTER → 2019-06-08 | Outpatient (CLI) | payer MEDICARE ==
[2019-05-28 09:25] VITALS: BP 172/84
[~2019-06-08] MED LIST changes: +ORPH100T PO; +OXYC5CAP PO; +REGADENOSON 0.4 MG/5 ML DISP.SYRIN. IV ONE
--- NOTE | 2019-06-08 11:59 | RAD ---
MR#: [id number] Date of Study: 06/08/2019 Ordering Physician: PRISCILA MOORE, Referring Physician: ERIK MOREJON Tech: JAD Camejo APPROVED REPORT Test Type: Pharmacological Stress Nurse/Tech: Glenis Dominguez R.N. Test Indications: pre op clearance Cardiac History: htn Medications: see ehr Medical History: see ehr Resting ECG: sr Resting Heart Rate: 68 bpm Resting Blood Pressure: 134/62mmHg Pretest Chest Pain: No chest pain Nurse/Tech Notes lungs cta, heart tones regular Consent: The procedure was explained to the patient in lay terms. Informed consent was witnessed. Guzman eout was entered into [employer]. History and Stress Test performed by DENNIS Fritz, ARRT (R) (N) Pharm. Details Pharmacologic stress testing was performed using 0.4mg per 5ml of regadenoson given intravenously ove r 7-10 seconds. Stress Symptoms No chest pain or symptoms.Nausea, shortness of breath POST EXERCISE Reason for Termination: Infusion complete Target HR: No Max HR: 96 bpm Max Blood Pressure: 127/51mmHg Chest Pain: No. Arrhythmia: No. ST Change: No. INTERPRETATION Stress EKG Conclusion: The resting EKG shows a sinus rhythm with nonspecific ST-T wave changes. The stress EKG shows no significant change from baseline. No EKG evidence of stressed induced ischemia. Imaging Protocol IMAGE PROTOCOL: Rest Tc-99m/stress Tc-99m 1 day Rest: Stress: Viability: Radiopharm.Tc99m [id number] Sestamibi [id number] 33mCi Duration 15min. 13min. Img Date 06/08/2019 06/08/2019 Inj-Img [id number]. 60min. Rest Admin Site:IV - Left ForearmAdministrator:DENNIS Fritz, ARRT (R)(N) Stress Admin Site: IV - Left ForearmAdministrator: DENNIS Fritz, ARRT (R)(N) STRESS DATA End Diast. Vol.65.0mlLVEDV index BSA34.0ml End Syst. Vol.17.0mlLVESV index BSA9.0ml Myocardial Xwty119.0gEject. Ipgyyqyw32.0% Stress Scores Regional WT0.00Summed WT2.00 Regional WM0.00Summed WM0.00 LV Perfusion The stress scans show no significant defects. The rest scans show no significant defects. Nuclear imaging shows no reversible ischemia or infarct. Wall Motion LV systolic function is normal with no regional wall motion abnormalities and an ejection fraction of greater than 70%. LV Perf. Quant 17 Seg. SSS0.00 17 Seg. SRS3.00 17 Seg. SDS0.00 Stress Defect Extent (% LAD)0.00Rest Defect Extent (% LAD)11.90Rev. Defect Extent (% LAD)0.00 Stress Defect Extent (% LCX) 0.00Rest Defect Extent (% LCX)0.00Rev. Defect Extent (% LCX)0.00 Stress Defect Extent (% RCA)0.00Rest Defect Extent (% RCA)0.00Rev. Defect Extent (% RCA)0.00 Stress Defect Extent (% ROCAEL)0.00Rest Defect Extent (% ROCAEL)4.10Rev. Defect Extent (% ROCAEL)0.00 Conclusion 1. No EKG evidence of stressed induced ischemia. 2. Nuclear imaging shows no reversible ischemia or infarct. 3. Normal left ventricular systolic function with an ejection fraction of greater than 70%. 4. Low risk Lexiscan nuclear stress test. Signed by : Priscila Moore MD Electronically Approved : 06/08/2019 11:59:14
== END | disposition home or self-care (01) ==
LOC: NM 08:08
PROVIDERS: ATTEND Internal Medicine Cardiovascular Disease
DX: Z01.818 Encounter for other preprocedural examination (principal)
CPT/HCPCS: 78452; 93017; A9500; J2785

== ENCOUNTER → 2019-09-06 | Outpatient (CLI) | payer MEDICARE ==
[2019-06-16 11:00] VITALS: BP 158/85
[~2019-09-06] MED LIST changes: +HYDR-2761 PO; +METH750T2 PO; -REGADENOSON 0.4 MG/5 ML DISP.SYRIN. IV ONE
--- NOTE | 2019-09-06 10:47 | RAD ---
AP and lateral lumbar spine radiographs 09/06/2019 CLINICAL HISTORY: Post spinal fusion. AP and lateral digital radiographs of the lumbar spine were obtained. Minimal S-shaped curvature of the thoracolumbar spine is noted. Mild anterolisthesis of L4 in relation to L5 is seen. The patient is post posterolateral fusion using pedicle screws and stabilizing rods at L4-5. No fracture or subluxation of the lumbar vertebrae is noted. Degenerative changes are seen involving the lumbar disc spaces consisting of vertebral endplate sclerosis and minimal to mild anterior and posterior vertebral body osteophyte formation. Disc space narrowing is seen at L4-5. Degenerative changes are seen involving the facet joints throughout the mid and lower lumbar disc spaces. Atherosclerotic calcification of the abdominal aorta is noted. IMPRESSION: Postsurgical and degenerative changes are seen involving the lumbar spine as discussed above. No acute osseous abnormality is seen. Electronically signed by: Sergey Zhu MD (09/06/2019 10:44 AM) [id number]
== END | disposition home or self-care (01) ==
LOC: RAD 09:34
PROVIDERS: ATTEND Neurological Surgery
DX: M51.36 Other intervertebral disc degeneration, lumbar region (principal); M25.78 Osteophyte, vertebrae; I70.0 Atherosclerosis of aorta; M48.061 Spinal stenosis, lumbar region without neurogenic claudication
CPT/HCPCS: 72100

== ENCOUNTER → 2020-08-01 | Outpatient (CLI) | payer MEDICARE ==
[2019-06-16 11:00] VITALS: BP 158/85
[~2020-08-01] MED LIST changes: +LISI10TA16 PO; -LISI10TA2 PO; +METH-562 PO; -METH750T2 PO
--- NOTE | 2020-08-01 15:27 | KCIC ---
MR LUMBAR SPINE WO [id number] Date: 08/01/2020 10:20 AM Indication: LUMBAR RADICULOPATHY. Previous surgery x 2. New onset of pain in both anterior thighs. S x for one month. NKI. Comparison: CT 06/15/2019. Technique: Multi-planar multi-weighted magnetic resonance imaging of the lumbar spine was performed w ithout intravenous contrast using the standard lumbar spine protocol. FINDINGS: Postsurgical changes of posterior decompression and posterior instrumentation at L4-5. 6 mm anterolisthesis at L4-5. No acute fracture. Multilevel degenerative disc desiccation and disc he ight loss, worst and severe at L4-5. Degenerative endplate sclerosis at L4-5. The conus terminates at a normal level. No abnormal signal is seen within the visualized distal spina l cord. No clumping of intrathecal nerve roots. No soft tissue abnormality in the visualized abdomen or pelvis. T12-L1: No disc bulge. No facet arthropathy. No significant spinal stenosis or neural foraminal narro wing. L1-L2: No disc bulge. No facet arthropathy. No significant spinal stenosis or neural foraminal narrow ing. L2-L3: Disc bulge. Mild facet arthropathy. No significant spinal stenosis. Moderate left lateral rece ss narrowing with mass effect on the descending left L3 nerve root. Mild right and mild to moderate l eft neural foraminal narrowing. L3-L4: Disc bulge. Moderate facet arthropathy. No significant spinal stenosis. Mild right and mild to moderate left neural foraminal narrowing. L4-L5: Posterior decompression. No spinal canal stenosis. Mild bilateral neural foraminal narrowing. L5-S1: Disc bulge with left far lateral protrusion. Mild facet arthropathy. No significant spinal neeraj nosis. Mild bilateral neural foraminal narrowing. IMPRESSION: Mild to moderate lumbar spondylosis, detailed level by level above. Electronically signed by: Maksim Otto MD (08/01/2020 3:24 PM) [id number]
== END ==
LOC: KCIC MRI 10:08
PROVIDERS: ATTEND Family Medicine
DX: M47.26 Other spondylosis with radiculopathy, lumbar region (principal); M48.061 Spinal stenosis, lumbar region without neurogenic claudication; M47.818 Spondylosis without myelopathy or radiculopathy, sacral and sacrococcygeal region
CPT/HCPCS: 72148